=== PATIENT | male | born 1970 | race American Indian/Alaskan Native ===

== ENCOUNTER 2019-05-06 14:15 | Emergency (ER) | payer OTHER ==
[2019-05-06 14:49] VITALS: BP 177/100
[2019-05-06] MEDS ORDERED: TORADOL IM STA (14:49)
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
== END 2019-05-06 17:16 | disposition home or self-care (01) ==
LOC: ED 14:15
DX: S39.012A Strain of muscle, fascia and tendon of lower back, initial encounter (principal); S16.1XXA Strain of muscle, fascia and tendon at neck level, initial encounter; M25.512 Pain in left shoulder; M25.511 Pain in right shoulder; V89.2XXA Person injured in unspecified motor-vehicle accident, traffic, initial encounter; Y93.89 Activity, other specified; Y92.488 Other paved roadways as the place of occurrence of the external cause; Y99.8 Other external cause status
CPT/HCPCS: 72040; 72100; 96372; 99283; J1885